=== PATIENT | female | born 1940 | race Caucasian/White ===

== ENCOUNTER 2018-03-23 05:45 | Inpatient (IN) | payer OTHER, MEDICARE ==
[~2018-03-23] VITALS: Ht 170.2 cm; Wt 90.0 kg
[2018-03-23 05:59] VITALS: BP 107/54; PULSE 89; RESP 16; TEMP 98.7; O2SAT 85
[2018-03-23 06:00] VITALS: RESP 16; O2SAT 93
[2018-03-23] MEDS ORDERED: TETANUS/DIPHTHERIA TOXOID ADULT 0.5 ML VIAL IM ONE (06:00)
[2018-03-23] MEDS ORDERED: SODIUM CHLORIDE 0.9% FLUSH 10 ML FLUSH IVF PRN (06:00)
[2018-03-23] MEDS: ceFAZolin 2 GM PREMIX 50 ML IV ONE ×2 (06:00→06:13)
--- NOTE | 2018-03-23 06:00 | PD ---
HPI Chief Complaint: Fall, ankle injury Time Seen by Provider: 05:54 Travel History International Travel<30 days: No Contact w/Intl Traveler<30days: No Traveled to known affect area: No History of Present Illness HPI 77-year-old female with history of A. fib, brought in by indolence from home for evaluation of right ankle pain and deformity after mechanical fall that occurred this morning. The patient reports that she lost her balance and fell to the ground. She states that she likely struck her posterior head, however denies loss of consciousness. She denies head neck or back pain. She has some mild pain in her right ankle with reported deformity by EMS. EMS also reports that the right foot and ankle are neurovascularly intact, and that there are no other injuries. Patient did not complain of any pain and therefore did not receive any pain medication prior to arrival. Here she states her pain is mild , located in her right ankle, and does not wish to have any pain medication at this time. She is not on any antiplatelets or anticoagulants. The patient is currently being treated for bronchitis by her primary care physician with amoxicillin and doxycycline. PFSH Past Medical History Arthritis: Yes Autoimmune Disease: No Blood Disorders: No Anxiety: Yes Depression: Yes Heart Rhythm Problems: Yes (AFIB WITH RVR) Cancer: Yes Cardiovascular Problems: Yes High Cholesterol: Yes Chemotherapy: No Endocrine: No GERD: Yes Genitourinary: No Immune Disorder: No Musculoskeletal: Yes Neurologic: Yes Respiratory: No Radiation Therapy: No Past Surgical History AICD: No Joint Replacement: No Pacemaker: No Thoracic Surgery: Yes (LEFT MASTECTOMY) Social History Alcohol Use: Yes (1 GLASS OF WINE PER DAY) Tobacco Use: No Substance Use: No Allergies-Medications (Allergen,Severity, Reaction): Coded Allergies: No Known Allergies (Verified Allergy, Severe, 09/19/05) Reported Meds & Prescriptions Reported Meds & Active Scripts Active Reported Doxycycline 40 Mg Cap 100 Mg PO QID Zofran (Ondansetron HCl) 4 Mg Tab 4 Mg PO Q6HR PRN Amoxicillin 500 Mg Cap 500 Mg PO TID Medrol Dosepak (Methylprednisolone) 4 Mg Dspk 4 Mg PO DIRECTED Per Pharmacist direction Sumatriptan (Sumatriptan Succinate) 50 Mg Tab 50 Mg PO ONCE PRN If a satisfactory response has not been obtained at 2 hours, a second dose may be administered Ativan (Lorazepam) 1 Mg Tab 1 Mg PO Q8H PRN Lisinopril 10 Mg Tab 10 Mg PO DAILY Ambien (Zolpidem Tartrate) 10 Mg Tab 10 Mg PO HS PRN Flecainide (Flecainide Acetate) 100 Mg Tab 100 Mg PO TID Review of Systems Except as stated in HPI: all other systems reviewed are Neg Physical Exam Narrative GENERAL: Well-developed, well-nourished, awake, alert, GCS 15, no apparent distress. SKIN: Focused skin assessment warm/dry. Small, approximately 1 cm horizontal laceration, superficial, to the right anterior/medial/distal leg with surrounding ecchymosis and underlying hematoma. HEAD: Atraumatic. Normocephalic. EYES: Pupils equal and round. No scleral icterus. No injection or drainage. ENT: No nasal bleeding or discharge. Mucous membranes pink and moist. NECK: Trachea midline. No JVD. No midline cervical spine step-off or tenderness. CARDIOVASCULAR: Regular rate and rhythm. 1+ bilateral dorsalis pedis pulses. Normal capillary refill in bilateral toes. RESPIRATORY: No accessory muscle use. Clear to auscultation. Breath sounds equal bilaterally. GASTROINTESTINAL: Abdomen soft, non-tender, nondistended. . MUSCULOSKELETAL: Skin exam as above. Obvious deformity and edema to the right ankle with mild tenderness.. The rest of her joints and extremities are without deformity, without tenderness, with normal range of motion. All compartments in the right lower extremity are supple. NEUROLOGICAL: Awake and alert. No obvious cranial nerve deficits. Motor grossly within normal limits. Normal speech. PSYCHIATRIC: Appropriate mood and affect; insight and judgment normal. Data Data Last Documented VS Vital Signs Date Time Temp Pulse Resp B/P (MAP) Pulse Ox O2 Delivery O2 Flow Rate FiO2 03/23/18 06:00 16 93 Nasal Cannula 5.00 03/23/18 06:00 89 03/23/18 05:59 98.7 107/54 (71) Orders Orders Complete Blood Count With Diff (03/23/18 05:54) Comprehensive Metabolic Panel (03/23/18 05:54) B-Type Natriuretic Peptide (03/23/18 05:54) Act Partial Throm Time (Ptt) (03/23/18 05:54) Prothrombin Time / Inr (Pt) (03/23/18 05:54) Iv Access Insert/Monitor (03/23/18 05:54) Ecg Monitoring (03/23/18 05:54) Oximetry (03/23/18 05:54) Oxygen Administration (03/23/18 05:54) Sodium Chloride 0.9% Flush (Ns Flush) (03/23/18 06:00) Chest, Single Ap (03/23/18 ) Ankle, Complete ([id number]) (03/23/18 ) Tibia/Fibula (Ap/Lat) (03/23/18 ) Tetanus/Diphtheria Tox Adult (Tetanus/Di (03/23/18 06:00) Cefazolin 2 Gm Premix (Ancef 2 Gm Premix (03/23/18 06:00) Ckmb (Isoenzyme) Profile (03/23/18 05:58) Troponin I (03/23/18 05:58) Albuterol-Ipratropium Neb (Duoneb Neb) (03/23/18 06:45) Support Splint (03/23/18 06:42) Ankle, Complete ([id number]) (03/23/18 ) Labs Laboratory Tests Test 03/23/18 06:00 White Blood Count 11.0 TH/MM3 Red Blood Count 4.13 MIL/MM3 Hemoglobin 12.4 GM/DL Hematocrit 37.6 % Mean Corpuscular Volume 91.0 FL Mean Corpuscular Hemoglobin 29.9 PG Mean Corpuscular Hemoglobin Concent 32.8 % Red Cell Distribution Width 13.3 % Platelet Count 203 TH/MM3 Mean Platelet Volume 8.8 FL Neutrophils (%) (Auto) 90.0 % Lymphocytes (%) (Auto) 3.8 % Monocytes (%) (Auto) 6.1 % Eosinophils (%) (Auto) 0.0 % Basophils (%) (Auto) 0.1 % Neutrophils # (Auto) 9.9 TH/MM3 Lymphocytes # (Auto) 0.4 TH/MM3 Monocytes # (Auto) 0.7 TH/MM3 Eosinophils # (Auto) 0.0 TH/MM3 Basophils # (Auto) 0.0 TH/MM3 CBC Comment AUTO DIFF Prothrombin Time 11.2 SEC Prothromb Time International Ratio 1.1 RATIO Activated Partial Thromboplast Time 21.5 SEC Blood Urea Nitrogen 29 MG/DL Creatinine 1.55 MG/DL Random Glucose 145 MG/DL Total Protein 7.5 GM/DL Albumin 3.0 GM/DL Calcium Level 8.9 MG/DL Alkaline Phosphatase 99 U/L Aspartate Amino Transf (AST/SGOT) 54 U/L Alanine Aminotransferase (ALT/SGPT) 39 U/L Total Bilirubin 0.5 MG/DL Sodium Level 140 MEQ/L Potassium Level 3.6 MEQ/L Chloride Level 101 MEQ/L Carbon Dioxide Level 26.7 MEQ/L Anion Gap 12 MEQ/L Estimat Glomerular Filtration Rate 33 ML/MIN B-Type Natriuretic Peptide 515 PG/ML MDM Medical Decision Making Medical Screen Exam Complete: Yes Emergency Medical Condition: Yes Differential Diagnosis Right ankle fracture/dislocation, open fraction, contusion, intracranial trauma less likely, pneumonia, bronchitis, pulmonary edema Narrative Course Right ankle x-ray shows bimalleolar fracture with lateral displacement of the ankle joint. There is a small wound over the distal/anterior/medial leg which is superficial. It is hard to tell if this is an open fracture not. The patient was given a dose of Ancef. Her tetanus was updated. Case discussed with orthopedist Dr. Willard. The patient is hypoxic on room air and has a deep sounding cough and I am afraid that she has pneumonia. Her O2 saturation is 86% on room air. She is not in any respiratory distress. I told him that I am hesitant to sedate her to reduce the fracture dislocation. I will apply a splint and try to manipulate the ankle joint into better anatomic alignment. The foot is neurovascularly intact. He would like the patient to remain n.p.o. for likely ORIF today. Chest x-ray shows no acute cardiopulmonary disease. CBC: WBC 11, 37.6, platelets 203, neutrophils 90%. CMP is remarkable for BUN 29, creatinine 1.55, GFR 33, random glucose 145. 7:05 AM: The patient was evaluated at the bedside by orthopedist Dr. Burger who will take the patient to the OR for ORIF. Diagnosis Primary Impression: Fracture dislocation of right ankle Qualified Codes: S82.891A - Other fracture of right lower leg, initial encounter for closed fracture Additional Impression: Fall Qualified Codes: W19.XXXA - Unspecified fall, initial encounter Admitting Information Admitting Physician Requests: Admit Oliver Fernando MD March 23, 2018 06:00
[2018-03-23 06:06] LABS: AUTOMATED NEUTROPHIL # 9.9 TH/MM3 (1.8-7.7); BASOPHIL % 0.1 % (0.0-2.0); HEMATOCRIT 37.6 % (35.0-46.0); HEMOGLOBIN 12.4 GM/DL (11.6-15.3); LYMPH % 3.8 % (9.0-44.0); LYMPHOCYTE # 0.4 TH/MM3 (1.0-4.8); MEAN CORPUSCULAR HEMOGLOBIN 29.9 PG (27.0-34.0); MEAN CORPUSCULAR HGB CONC 32.8 % (32.0-36.0); MEAN PLATELET VOLUME 8.8 FL (7.0-11.0); MONO % 6.1 % (0.0-8.0); MONOCYTE # 0.7 TH/MM3 (0-0.9); PLATELET COUNT 203 TH/MM3 (150-450); RED BLOOD COUNT 4.13 MIL/MM3 (4.00-5.30); RED CELL DISTRIBUTION WIDTH 13.3 % (11.6-17.2)
[2018-03-23] MEDS ORDERED: MEDR4PAK PO (06:09)
[2018-03-23] MEDS ORDERED: ZOFR4TAB PO (06:09)
[2018-03-23] MEDS ORDERED: LORA-474 PO (06:09)
[2018-03-23] MEDS ORDERED: AMBI10TA PO (06:09)
[2018-03-23] MEDS ORDERED: LISI10TA3 PO (06:09)
[2018-03-23] MEDS ORDERED: AMOX500C PO (06:09)
[2018-03-23] MEDS ORDERED: DOXY1CAP74 PO (06:09)
[2018-03-23] MEDS ORDERED: SUMA50TA2 PO (06:09)
[2018-03-23] MEDS ORDERED: FLEC100T PO (06:09)
[2018-03-23 06:15] LABS: INTERNATIONAL NORMALIZED RATIO 1.1 RATIO; PROTHROMBIN TIME - PATIENT 11.2 SEC (9.8-11.6)
[2018-03-23 06:32] LABS: ALKALINE PHOSPHATASE 99 U/L (45-117); TOTAL BILIRUBIN ADULT 0.5 MG/DL (0.2-1.0); TOTAL PROTEIN 7.5 GM/DL (6.4-8.2)
[2018-03-23 06:33] LABS: ALT (GPT) 39 U/L (10-53); AST (GOT) 54 U/L (15-37); BICARBONATE 26.7 MEQ/L (21.0-32.0); BLOOD UREA NITROGEN 29 MG/DL (7-18); CALCIUM 8.9 MG/DL (8.5-10.1); CHLORIDE 101 MEQ/L (98-107); CREATININE 1.55 MG/DL (0.50-1.00); GLOMERULAR FILTRATION RATE 33 ML/MIN (>89); GLUCOSE,RANDOM 145 MG/DL (74-106); SODIUM (NA) 140 MEQ/L (136-145)
[2018-03-23] MEDS ORDERED: RESP: ALBUTEROL 2.5 MG/IPRATROPIUM 0.5 MG NEB (SCH) INH ONE (06:45)
--- NOTE | 2018-03-23 06:48 | RADRPT ---
EXAM DATE: 03/23/2018 6:30 AM EDT AGE/SEX: 77 years / Female INDICATIONS: Pain in right ankle from fall in shower. CLINICAL DATA: This is the patient's initial encounter. Patient reports that signs and symptoms have been present for 1 day and indicates a pain score of 10/10. MEDICAL/SURGICAL HISTORY: None. None. COMPARISON: No prior exams available for comparison. FINDINGS: The ankle mortise is disrupted with widening of the medial tibiotalar joint and there is a complete f racture of distal fibula above the lateral malleolus which is also angulated. There are also fracture s of the talar dome and anterior displacement of the talus with respect to tibia. CONCLUSION: Disrupted ankle mortise and fractures of the distal fibula, talar dome and partial tibiotalar disloca tion. Electronically signed by: Deric Parra MD 03/23/2018 6:46 AM EDT
--- NOTE | 2018-03-23 06:50 | RADRPT ---
EXAM DATE: 03/23/2018 6:28 AM EDT AGE/SEX: 77 years / Female INDICATIONS: Pain in right ankle from fall, in shower. CLINICAL DATA: This is the patient's initial encounter. Patient reports that signs and symptoms have been present for 1 day and indicates a pain score of 10/10. MEDICAL/SURGICAL HISTORY: None. None. COMPARISON: No prior exams available for comparison. FINDINGS: The ankle mortise is completely disrupted with almost 2 cm widening of the medial tibiotalar joint. T here is a fibular fracture is present of the lateral malleolus slightly angulated and there appears t o be a fracture with avulsion of the medial talar dome as well. The fibular fracture is displaced by almost the width. There is also partial anterior dislocation of the talus with respect to tibia. CONCLUSION: Disrupted ankle mortise, fractures of the medial talar dome and displaced distal fibular fracture. Pa rtial anterior dislocation of tibiotalar joint. Electronically signed by: Deric Parra MD 03/23/2018 6:49 AM EDT
--- NOTE | 2018-03-23 06:51 | RADRPT ---
EXAM DATE: 03/23/2018 6:29 AM EDT AGE/SEX: 77 years / Female INDICATIONS: Short of breath. CLINICAL DATA: This is the patient's initial encounter. Patient reports that signs and symptoms have been present for 1 day and indicates a pain score of 0/10. MEDICAL/SURGICAL HISTORY: None. None. COMPARISON: [facility], ANKLE RIGHT COMPLETE ([id number]), 03/23/2018. . FINDINGS: The lungs are clear without infiltrate, nodule, or mass. There is no appreciable pleural effusion for technique. Heart and mediastinum are unremarkable. CONCLUSION: No acute cardiopulmonary disease. Electronically signed by: Deric Parra MD 03/23/2018 6:50 AM EDT
[2018-03-23 07:05] VITALS: BP 127/65; PULSE 83; RESP 16; O2SAT 96
[2018-03-23 07:23] LABS: BANDS 38 % (0-6); LYMPHOCYTES 2 % (9-44); MONOCYTES 3 % (0-8); NEUTROPHIL # MANUAL DIFF 10.5 TH/MM3 (1.8-7.7); POLYS (SEG NEUTROPHILS) 57 % (16-70)
[2018-03-23] MEDS ORDERED: ACETAMINOPHEN 1000 MG/100 ML 100 ML IV ONE (07:46)
[2018-03-23] MEDS ORDERED: PROPOFOL 200 MG/20 ML AMP ONE ×2 (07:46)
--- NOTE | 2018-03-23 07:46 | PD.ORT.PN ---
Subjective Subjective Remarks s/p fall at home right ankle pain reports SOB Objective Vitals Vital Signs Date Time Temp Pulse Resp B/P (MAP) Pulse Ox O2 Delivery O2 Flow Rate FiO2 03/23/18 07:05 83 16 127/65 (85) 96 Nasal Cannula 4.00 03/23/18 06:00 16 93 Nasal Cannula 5.00 03/23/18 06:00 89 16 85 Room Air 03/23/18 06:00 93 Nasal Cannula 5.00 03/23/18 05:59 98.7 89 16 107/54 (71) 85 Result Diagram: 03/23/18 0600 03/23/18 0600 Other Results Laboratory Tests Test 03/23/18 06:00 Prothromb Time International Ratio 1.1 RATIO Prothrombin Time 11.2 SEC (9.8-11.6) Imaging Last 24 hours Impressions Tibia/Fibula X-Ray 03/23/18 0000 Signed Impressions: CONCLUSION: Disrupted ankle mortise and fractures of the distal fibula, talar dome and part ial tibiotalar dislocation. Chest X-Ray 03/23/18 0000 Signed Impressions: CONCLUSION: No acute cardiopulmonary disease. Ankle X-Ray 03/23/18 0000 Signed Impressions: CONCLUSION: Disrupted ankle mortise, fractures of the medial talar dome and displaced dista l fibular fracture. Partial anterior dislocation of tibiotalar joint. Objective Remarks RLE: +short leg splint. intact. NVI Assessment & Plan Assessment and Plan 1) Right Bimalleolar Ankle Fx -npo -consents -surgery today with Bebeto Bach/First Rakesh RAINES March 23, 2018 07:46
[2018-03-23] MEDS ORDERED: HYDR-3580 PO (07:47)
[2018-03-23] MEDS ORDERED: WALKER/ADULT/FO1 MIS (07:47)
[2018-03-23] MEDS ORDERED: POVIDONE IODINE 5% (ANTISEPSIS KIT) 4 APPLICATIONS EACH NARE PRN (08:00)
[2018-03-23] MEDS ORDERED: METOPROLOL TARTRATE 25 MG TAB PO PRN (08:00)
[2018-03-23] MEDS ORDERED: LACTATED RINGER'S 1000 ML IV PRN (08:00)
[2018-03-23] MEDS ORDERED: CHLORHEXIDINE GLUCONATE 2 % 1 PACK (2 CLOTHS) TOPICAL PRN (08:00)
[2018-03-23] MEDS ORDERED: INSULIN HUMAN REGULAR 1,000 UNITS/10 ML VIAL SQ PRN (08:00)
[2018-03-23] MEDS ORDERED: SODIUM CHLORID 0.9% 500 ML IV PRN (08:00)
[2018-03-23] MEDS: VANCOMYCIN HCL 1000 MG VIAL ONE ×2 (08:24→08:39)
--- NOTE | 2018-03-23 08:38 | MB ---
cc: Tommy Burger MD DATE: 03/23/2018 REASON FOR CONSULTATION: Right ankle fracture. HISTORY OF PRESENT ILLNESS: Sosa is a 77-year-old female who had a fall at home. She describes a mechanical fall. She lost her balance and fell. She did hit the back of her head, but denies loss of consciousness. She denies dizziness, syncope or loss of consciousness. She had immediate right ankle pain. She was unable to stand or ambulate. She presented to the emergency room where x-rays revealed a mildly displaced right ankle fracture. The patient reportedly has a small abrasion over the medial ankle. It did not appear to be an open fracture. She does have a history of atrial fibrillation. She was recently diagnosed with bronchitis or possible pneumonia and is on amoxicillin and doxycycline. She has had some shortness of breath secondary to this. PAST MEDICAL HISTORY: Illnesses, atrial fibrillation with rapid ventricular response, history of cancer, high cholesterol. PAST SURGICAL HISTORY: Left mastectomy. ALLERGIES: NO KNOWN DRUG ALLERGIES. MEDICATIONS: Include: 1. Doxycycline. 2. Zofran. 3. Amoxicillin. 4. Medrol Dosepak. 5. Sumatriptan. 6. Ativan. 7. Lisinopril. 8. Ambien. 9. Flecainide. SOCIAL HISTORY: The patient denies tobacco or drug use. She drinks 1 glass of wine a day. FAMILY HISTORY: Noncontributory. She denies any familial medical problems. REVIEW OF SYSTEMS: The patient denies headache, visual changes, neck pain, chest pain, shortness of breath, abdominal pain, nausea, vomiting, recent weight loss, fever or chills or numbness to his extremities. She has had a productive cough. She has had mild shortness of breath. She has chronic peripheral neuropathy. She complains of right ankle pain. LABORATORY DATA: The patient has a white blood cell count of 11.0, hematocrit of 37.6, platelet count of 203. INR 1.1. BUN is 29, creatinine is 1.55, potassium is 2.6. IMAGING: X-rays of right ankle reviewed. X-rays reveal a moderately displaced right ankle bimalleolar fracture. PHYSICAL EXAMINATION: GENERAL: The patient is a 77-year-old female. She is awake and alert. She is in no acute distress. She appears well-developed and well-nourished. Her is at bedside. VITAL SIGNS: Temperature 98.7, pulse 83, respirations 16, blood pressure 127/65, O2 saturation is 96% on 4 liters nasal cannula. HEAD: The patient is normocephalic. EYES: Pupils are equal. NECK: Soft, nontender. The trachea is midline. ABDOMEN: Soft, nontender, nondistended. EXTREMITIES: Examination of bilateral upper extremities reveals no obvious pain or deformity with shoulder, elbow and wrist motion. She has intact sensation in all fingers. She has good cap refill in all fingers. Skin is intact. Radial pulses are palpable. Examination of left leg reveals no pain with hip, knee or ankle motion. Skin is intact. Dorsalis pedis pulses palpable. Sensation is intact. Examination of right leg reveals no pain with hip or knee motion. She is tender to palpation over her ankle. She has mild swelling present. She has a small abrasion over the medial ankle. She has good capillary refill in her toes. She has mildly diminished sensation in both feet secondary to peripheral neuropathy. IMPRESSION: 1. Atrial fibrillation. 2. Possible osteoporosis. 3. Displaced right ankle fracture. 4. Possible pneumonia or bronchitis. PLAN: Treatment options were discussed with the patient and her . At this point, I would recommend open reduction internal fixation of right ankle. Risks of surgery include bleeding, infection, injury to arteries, nerves or blood vessels, nonunion, malunion, wound complications, painful hardware, ankle stiffness, ankle arthritis as well as medical complications including blood clot, stroke, heart attack and . All questions were answered. I will plan on surgery today. Given the patient's pneumonia, I will discussed with anesthesia possible spinal or regional anesthesia to avoid general anesthetic. Postoperatively, I will place the patient on calcium and vitamin D for possible osteoporosis. All questions were answered. A mid-level provider in my office, nurse practitioner or PA, may see this patient on a follow-up basis and continue to implement the objective of this plan including: Starting or adjusting medications, injections of muscle, tendon, bursa or joints, cast application, orthotic or brace application, physical therapy, further radiographic studies including x-ray, MRI, CT, ultrasounds or bone scan, vascular studies, neurologic studies, or other specialist consultations, and proceeding with surgical management as appropriate. Tommy MD BIJAN Schwarz , 08:14 AM , 08:36 AM
[2018-03-23] MEDS ORDERED: MORPHINE SULFATE 4 MG/ML INJ IV PUSH PRN (09:15)
[2018-03-23] MEDS ORDERED: Post-op Orders (for Pharmacy) XX ONE (09:15)
--- NOTE | 2018-03-23 09:17 | PD.OP ---
cc: Tommy Elliott MD Operative Report Date of Surgery: March 23, 2018 Preoperative Diagnosis: Displaced right ankle bimalleolar fracture Postoperative Diagnosis: Procedure: Open reduction internal fixation right ankle Anesthesia: Spinal Surgeon: Tommy Elliott Grinder Set Up Operator Surface(s): CEM Doan PA-C The surgical procedure was assisted by my physician physical therapist assistant. My P.A. presence was necessary throughout this case for the manipulation and positioning of the surgical extremity. My P.A. was assisting me throughout the duration of this procedure. The skill set of a physician physical therapist assistant was medically necessary to complete this procedure. During the surgical case the surgical pathologist was working at the back table and the physician physical therapist assistant was directly assisting me. Operation and Findings: Implants used : ITS Plan of activity: Nonweightbearing Details of procedure: Patient was seen and evaluated preoperatively and found to have a displaced right ankle fracture. Informed consent was obtained after a detailed discussion of risk and benefits of surgery. The operative site was marked. Patient was brought to the OR, placed on the OR table, and given IV sedation and general endotracheal anesthesia. IV antibiotics were given preoperatively. A timeout procedure was performed. The operative leg was prepped with alcohol followed by Hibiclens and draped in the usual sterile fashion. Attention was turned towards the distal fibula. A four-inch incision was made over the distal fibula. The subcutaneous tissue was dissected with Bovie. The fracture site was visualized. The fracture site was cleaned with curets. The fracture was now reduced. The fracture keyed into anatomic alignment. K-wires were used to h old provisional fixation. A lag screw was placed to compress fracture. A plate was selected and contoured to fit the distal fibula. The plate was provisionally held to bone with K-wires. 3.5 cortical screws were used to compress the plate to bone. Multiple screws were placed above and below the fracture. Next attention was turned towards the medial malleolus. The medial malleolus supposed through a 3 cm incision. Saphenous vein was retracted. Fracture was visualized. Fracture was cleaned with curettes. Fracture was now reduced and keyed into anatomic alignment. K wires were used to hold provisional fixation. A guidepin for the 4.0 cannulated screws was placed in a retrograde fashion across the fracture. Fluoroscopy was used to confirm guidepin placement. Cannulated drill was placed over the guidepin. Appropriate length screw was now placed. Good compression was applied. Only one screw was placed secondary to the small fragment size. Fluoroscopy confirmed well aligned fracture with well-placed hardware. Next, attention was turned to the syndesmosis. The syndesmosis was stressed. There was no widening of the syndesmosis with external rotation of the ankle. Incisions were thoroughly irrigated. The subcutaneous tissue was closed with 3- 0 Vicryl and the skin was closed with 3-0 nylon. Sterile dressings were applied. A well molded well-padded splint was applied. The patient was transferred to Recovery in stable condition. Needle and sponge counts were correct. Tommy Elliott MD March 23, 2018 09:17
[2018-03-23] MEDS ORDERED: ONDANSETRON ODT 4 MG TAB PO PRN (09:45)
[2018-03-23] MEDS ORDERED: DO NOT ADM ANY ANTICOAGULANT DRUGS PRN (09:53)
--- NOTE | 2018-03-23 09:54 | HHI.FF ---
Face to Face Verification Diagnosis: (1) Fracture dislocation of right ankle Physical Therapy Gait training, Safety evaluation Right LE Weight Bearing: Non WB Nursing Dressing Changes: Do not change dressing I have seen patient Sosa Woods on 03/23/18. My clinical findings support the need for the requested home health care services because: Ltd mobility - disease progression I certify that my clinical findings support that this patient is homebound because: Post-op weakness Bebeto Gibbs/Blackjack Supervisor OLU March 23, 2018 09:54
[2018-03-23] MEDS ORDERED: PHENYLEPH/NS 1000 MCG/10 ML SYR IV ONE (12:00)
[2018-03-23] MEDS ORDERED: KETOROLAC TROMETHAMINE 30 MG/ML (IVP) VIAL IV PUSH ONE (12:00)
--- NOTE | 2018-03-23 12:50 | RADRPT ---
EXAM DATE: 03/23/2018 12:17 PM EDT AGE/SEX: 77 years / Female INDICATIONS: ORIF right ankle. CLINICAL DATA: This is the patient's subsequent encounter. Patient reports that signs and symptoms h ave been present for 1 day and indicates a pain score of Nonresponsive. MEDICAL/SURGICAL HISTORY: . Unobtainable. . Unobtainable. COMPARISON: [facility] [place], ANKLE RIGHT COMPLETE ([id number]), 03/23/2018. . FINDINGS: AP and lateral fluoroscopic images of the right ankle demonstrate interval plate and screw fixation o f the distal fibula and screw fixation of the medial malleolus with interval reduction of the ankle m ortise. Hardware appears well positioned and intact. There is near-anatomic alignment. CONCLUSION: 1. Status post right ankle ORIF, as above. Electronically signed by: Marcos Arriaga MD 03/23/2018 12:48 PM EDT
[2018-03-23] MEDS ORDERED: TYLE325T PO (12:55)
[2018-03-23 13:15] VITALS: BP 115/76; PULSE 72; RESP 17; TEMP 97.8; O2SAT 95
--- NOTE | 2018-03-23 13:26 | HHI.HP ---
[facility] Service [facility] Primary Care Physician Tisha Staton MD Admission Diagnosis ankle fracture, hypoxia, bronchitis Diagnoses: Chief Complaint: I fell. Travel History International Travel<30 Days: No Contact w/Intl Traveler <30 Da: No Traveled to Known Affected Are: No History of Present Illness 77-year-old white female with a history of paroxysmal atrial fibrillation sustained a fall after she lost her balance and sustained a injury over the right ankle. She states that she hit her head however did not lose consciousness. She also recently been diagnosed with bronchitis is currently taking amoxicillin doxycycline from her primary care physician. Currently she denies any heart palpitations nor any chest pains. She is currently not on any anticoagulation For her history of atrial fibrillation. Review of Systems Constitutional: DENIES: Fatigue, Fever, Chills, Change in appetite Endocrine: DENIES: Heat/cold intolerance Eyes: DENIES: Blurred vision, Eye pain, Vision loss Ears, nose, mouth, throat: DENIES: Hearing loss, Nasal discharge, Throat pain, Ear Pain, Sinus Pain Respiratory: COMPLAINS OF: Cough ( recent diagnosis of bronchitis dry cough), DENIES: Shortness of breath Cardiovascular: DENIES: Chest pain, Palpitations, Dyspnea on Exertion, Lower Extremity Edema Gastrointestinal: DENIES: Abdominal pain, Black stools, Bloody stools, Constipation, Diarrhea, Nausea, Vomiting Genitourinary: DENIES: Dysuria Musculoskeletal: COMPLAINS OF: Joint pain (Right ankle pain after fall), DENIES : Muscle aches, Stiffness Integumentary: DENIES: Rash Hematologic/lymphatic: DENIES: Bruising, Lymphadenopathy Immunologic/allergic: DENIES: Eczema Neurologic: DENIES: Headache, Localized weakness, Paresthesias Psychiatric: DENIES: Anxiety, Depression, Suicidal Ideation Past Family Social History Past Medical History Paraxysmal atrial fibrillation Hyperlipidemia Hypertension GERD Recent bronchitis Left breast cancer Past Surgical History Left mastectomy Right wrist surgery Right rotator cuff surgery Reported Medications Acetaminophen 6 mg p.o. every 4 as needed for pain Amoxicillin 500 minutes p.o. 3 times daily Doxycycline 100 P.o. 4 times daily Flecainide 100 mg p.o. 3 times daily Alexander one every 4 hours as needed for pain Lisinopril 10 mg p.o. daily Ativan 1 mg every 8 hours as needed for anxiety Medrol Dosepak 4 mg as directed Zofran 4 mg every 4-6 as needed for nausea Sumatriptan 50 mg p.o. as needed for migraine headaches Ambien 10 mg p.o. nightly as needed for insomnia Allergies: Coded Allergies: No Known Allergies (Verified Allergy, Severe, 09/19/05) Family History Both mom and dad had heart disease Social History Does not smoke cigarettes drinks 1-1/2 glasses of wine nightly Physical Exam Vital Signs Vital Signs Date Time Temp Pulse Resp B/P (MAP) Pulse Ox O2 Delivery O2 Flow Rate FiO2 03/23/18 13:15 97.8 72 17 115/76 (89) 95 03/23/18 12:00 72 16 109/59 (76) 95 Nasal Cannula 2 03/23/18 11:30 74 16 109/55 (73) 95 Nasal Cannula 2 03/23/18 11:00 72 16 119/57 (77) 95 Nasal Cannula 2 03/23/18 10:45 70 16 112/58 (76) 96 Nasal Cannula 2 03/23/18 10:30 70 16 113/56 (75) 95 Nasal Cannula 2 03/23/18 10:15 74 16 126/56 (79) 96 Nasal Cannula 2 03/23/18 10:00 72 16 101/55 (70) 96 Nasal Cannula 2 03/23/18 09:50 97.5 72 16 103/55 (71) 98 Nasal Cannula 2 03/23/18 07:05 83 16 127/65 (85) 96 Nasal Cannula 4.00 03/23/18 06:00 16 93 Nasal Cannula 5.00 03/23/18 06:00 89 16 85 Room Air 03/23/18 06:00 93 Nasal Cannula 5.00 03/23/18 05:59 98.7 89 16 107/54 (71) 85 Physical Exam GENERAL: This is a well-nourished, well-developed patient, in no apparent distress. SKIN: No rashes, ecchymoses or lesions. Cool and dry. Right lower extremity in a cast bandage clean dry intact HEAD: Atraumatic. Normocephalic. No temporal or scalp tenderness. EYES: Pupils equal round and reactive. Extraocular motions intact. No scleral icterus. No injection or drainage. ENT: Nose without bleeding, purulent drainage or septal hematoma. NECK: Trachea midline. No JVD or lymphadenopathy. Supple, nontender, no meningeal signs. CARDIOVASCULAR: Regular rate and rhythm RESPIRATORY: Clear to auscultation. Breath sounds equal bilaterally. No wheezes , rales, or rhonchi. GASTROINTESTINAL: Abdomen soft, non-tender, nondistended. No hepato-splenomegaly , or palpable masses. No guarding. MUSCULOSKELETAL: Right lower extremity bandage clean dry intact NEUROLOGICAL: Awake and alert. Cranial nerves II through XII intact. Normal speech. Laboratory Laboratory Tests Test 03/23/18 06:00 White Blood Count 11.0 Red Blood Count 4.13 Hemoglobin 12.4 Hematocrit 37.6 Mean Corpuscular Volume 91.0 Mean Corpuscular Hemoglobin 29.9 Mean Corpuscular Hemoglobin Concent 32.8 Red Cell Distribution Width 13.3 Platelet Count 203 Mean Platelet Volume 8.8 Neutrophils (%) (Auto) 90.0 Lymphocytes (%) (Auto) 3.8 Monocytes (%) (Auto) 6.1 Eosinophils (%) (Auto) 0.0 Basophils (%) (Auto) 0.1 Neutrophils # (Auto) 9.9 Lymphocytes # (Auto) 0.4 Monocytes # (Auto) 0.7 Eosinophils # (Auto) 0.0 Basophils # (Auto) 0.0 CBC Comment AUTO DIFF Differential Total Cells Counted 100 Neutrophils % (Manual) 57 Band Neutrophils % 38 Lymphocytes % 2 Monocytes % 3 Neutrophils # (Manual) 10.5 Differential Comment FINAL DIFF MANUAL Platelet Estimate NORMAL Platelet Morphology Comment ENLARGED Red Cell Morphology Comment NORMAL Prothrombin Time 11.2 Prothromb Time International Ratio 1.1 Activated Partial Thromboplast Time 21.5 Blood Urea Nitrogen 29 Creatinine 1.55 Random Glucose 145 Total Protein 7.5 Albumin 3.0 Calcium Level 8.9 Alkaline Phosphatase 99 Aspartate Amino Transf (AST/SGOT) 54 Alanine Aminotransferase (ALT/SGPT) 39 Total Bilirubin 0.5 Sodium Level 140 Potassium Level 3.6 Chloride Level 101 Carbon Dioxide Level 26.7 Anion Gap 12 Estimat Glomerular Filtration Rate 33 B-Type Natriuretic Peptide 515 Result Diagram: 03/23/18 0600 03/23/18 0600 Imaging Last Impressions Tibia/Fibula X-Ray 03/23/18 0000 Signed Impressions: CONCLUSION: Disrupted ankle mortise and fractures of the distal fibula, talar dome and part ial tibiotalar dislocation. Chest X-Ray 03/23/18 Signed Impressions: CONCLUSION: No acute cardiopulmonary disease. Ankle X-Ray 03/23/18 Signed Impressions: CONCLUSION: 1. Status post right ankle ORIF, as above. Caprini VTE Risk Assessment Caprini VTE Risk Assessment: Mod/High Risk (score >= 2) Caprini Risk Assessment Model Point Value = 1 Point Value = 2 Point Value = 3 Point Value = 5 Age 41-60 Minor surgery BMI > 25 kg/m2 Swollen legs Varicose veins or History of unexplained or recurrent spontaneous Oral contraceptives or hormone replacement Sepsis (< 1 month) Serious lung disease, including pneumonia (< 1 month) Abnormal pulmonary function Acute myocardial infarction Congestive heart failure (< 1 month) History of inflammatory bowel disease Medical patient at bed rest Age 61-74 Arthroscopic surgery Major open surgery (> 45 min) Laparoscopic surgery (> 45 min) Malignancy Confined to bed (> 72 hours) Immobilizing plaster cast Central venous access Age >= 75 History of VTE Family history of VTE Factor V Leiden Prothrombin [id number] Lupus anticoagulant Anticardiolipin antibodies Elevated serum homocysteine Heparin-induced thrombocytopenia Other congenital or acquired thrombophilia Stroke (< 1 month) Elective arthroplasty Hip, pelvis, or leg fracture Acute spinal cord injury (< 1 month) Prophylaxis Regimen Total Risk Factor Score Risk Level Prophylaxis Regimen 0-1 Low Early ambulation 2 Moderate Order ONE of the following: *Sequential Compression Device (SCD) *Heparin 5000 units SQ BID 3-4 Higher Order ONE of the following medications: *Heparin 5000 units SQ TID *Enoxaparin/Lovenox 40 mg SQ daily (WT < 150 kg, CrCl > 30 mL/min) *Enoxaparin/Lovenox 30 mg SQ daily (WT < 150 kg, CrCl > 10-29 mL/min) *Enoxaparin/Lovenox 30 mg SQ BID (WT < 150 kg, CrCl > 30 mL/min) AND/OR *Sequential Compression Device (SCD) 5 or more Highest Order ONE of the following medications: *Heparin 5000 units SQ TID (Preferred with Epidurals) *Enoxaparin/Lovenox 40 mg SQ daily (WT < 150 kg, CrCl > 30 mL/min) *Enoxaparin/Lovenox 30 mg SQ daily (WT < 150 kg, CrCl > 10-29 mL/min) *Enoxaparin/Lovenox 30 mg SQ BID (WT < 150 kg, CrCl > 30 mL/min) AND *Sequential Compression Device (SCD) Assessment and Plan Assessment and Plan 1. Status post fall with right displaced ankle fracture status post ORIF with Dr. Burger today - continue postoperative care, pain control, physical therapy 2. Atrial fibrillation paroxysmal -patient is not on chronic anticoagulation at home. Currently normal sinus rhythm will continue with flecainide. 3. Hypertension history continue with lisinopril Vasotec IV as needed for uncontrolled blood pressure. 4. Acute bronchitis recently diagnosed continue with home antibiotics doxycycline and steroid taper 5. Elevated Troponin I - asymptomatic - lilkely due to the trauma of fall and CKD stage 3, repeat level and trend 6. CKD stage 3 - monitor and avoid nephrotoxins. 5. DVT prophylaxis SCDs Patient will need home health care upon discharge. Physician Certification 2 Midnight Certification Type: Admission for Inpatient Services Order for Inpatient Services The services are ordered in accordance with Medicare regulations or non- Medicare payer requirements, as applicable. In the case of services not specified as inpatient-only, they are appropriately provided as inpatient services in accordance with the 2-midnight benchmark. Estimated LOS (days): 2 days is the estimated time the patient will need to remain in the hospital, assuming treatment plan goals are met and no additional complications. Post-Hospital Plan: Home Health Eliza Morrow MD March 23, 2018 13:26
[2018-03-23 13:27] LABS: TROPONIN I 0.71 NG/ML (0.02-0.05)
[2018-03-23] MEDS ORDERED: LORazepam 1 MG TAB PO PRN (13:30)
[2018-03-23] MEDS ORDERED: ceFAZolin 2 GM PREMIX 50 ML IV SCH (14:00)
--- NOTE | 2018-03-23 14:00 | EKG ---
Date Performed: 03/23/2018 Time Performed: 05:57:03 PTAGE: 77 years EKG: Sinus rhythm MODERATE INTRAVENTRICULAR CONDUCTION DELAY NONSPECIFIC T-WAVE ABNORMALITY BORDERLINE ECG NO PREVIOUS TRACING DOCTOR: Carlos Delcid Interpretating Date/Time 03/23/2018 13:58:06
[2018-03-23 16:00] VITALS: BP 124/64; PULSE 78; RESP 16; TEMP 97.3; O2SAT 96
[2018-03-23] MEDS: FLECAINIDE ACETATE 100 MG TAB PO SCH (17:47)
[2018-03-23] MEDS: AMOXICILLIN (TRIHYDRATE) 500 MG CAP PO SCH (17:47)
[2018-03-23] MEDS: ACETAMINOPHEN/HYDROcodone 325 MG/7.5 MG TAB PO PRN ×2 (17:53→20:45)
[2018-03-23 20:00] VITALS: BP 104/52; PULSE 83; RESP 18; TEMP 98.9; O2SAT 93
[2018-03-23] MEDS: DOXYCYCLINE HYCLATE 100 MG CAP PO SCH (20:44)
[2018-03-23] MEDS: ZOLPIDEM TARTRATE 10 MG TAB PO PRN (22:58)
[2018-03-24 00:01] VITALS: BP 105/56; PULSE 78; RESP 17; TEMP 98.1; O2SAT 94
[2018-03-24 04:00] VITALS: BP 113/61; PULSE 80; RESP 18; TEMP 98.8; O2SAT 94
[2018-03-24] MEDS: ACETAMINOPHEN/HYDROcodone 325 MG/7.5 MG TAB PO PRN ×3 (06:01→17:33)
[2018-03-24 06:34] LABS: BICARBONATE 28.3 MEQ/L (21.0-32.0); CALCIUM 8.5 MG/DL (8.5-10.1); CREATININE 1.22 MG/DL (0.50-1.00)
--- NOTE | 2018-03-24 06:38 | PD.ORT.PN ---
Subjective Subjective Remarks POD 1 s/p ORIF right bimalleolar ankle fx doing well. reports pain in right ankle. Objective Vitals Vital Signs Date Time Temp Pulse Resp B/P (MAP) Pulse Ox O2 Delivery O2 Flow Rate FiO2 03/24/18 04:00 98.8 80 18 113/61 (78) 94 03/24/18 00:01 98.1 78 17 105/56 (72) 94 03/23/18 20:00 98.9 83 18 104/52 (69) 93 03/23/18 16:00 97.3 78 16 124/64 (84) 96 03/23/18 13:15 97.8 72 17 115/76 (89) 95 03/23/18 12:00 72 16 109/59 (76) 95 Nasal Cannula 2 03/23/18 11:30 74 16 109/55 (73) 95 Nasal Cannula 2 03/23/18 11:00 72 16 119/57 (77) 95 Nasal Cannula 2 03/23/18 10:45 70 16 112/58 (76) 96 Nasal Cannula 2 03/23/18 10:30 70 16 113/56 (75) 95 Nasal Cannula 2 03/23/18 10:15 74 16 126/56 (79) 96 Nasal Cannula 2 03/23/18 10:00 72 16 101/55 (70) 96 Nasal Cannula 2 03/23/18 09:50 97.5 72 16 103/55 (71) 98 Nasal Cannula 2 03/23/18 07:05 83 16 127/65 (85) 96 Nasal Cannula 4.00 I/O 03/23/18 03/23/18 03/23/18 03/24/18 03/24/18 03/24/18 07:00 15:00 23:00 07:00 15:00 23:00 Intake Total 650 ml 850 ml 420 ml Output Total 25 ml Balance 625 ml 850 ml 420 ml Intake Oral 800 ml 420 ml IV Total 100 ml 50 ml Other 550 ml Output Estimated Blood Loss 25 ml # Voids 2 2 # Bowel Movements 0 Result Diagram: 03/23/18 0600 03/24/18 0447 Imaging Last 24 hours Impressions Tibia/Fibula X-Ray 03/23/18 0000 Signed Impressions: CONCLUSION: Disrupted ankle mortise and fractures of the distal fibula, talar dome and part ial tibiotalar dislocation. Chest X-Ray 03/23/18 0000 Signed Impressions: CONCLUSION: No acute cardiopulmonary disease. Ankle X-Ray 03/23/18 0000 Signed Impressions: CONCLUSION: Disrupted ankle mortise, fractures of the medial talar dome and displaced dista l fibular fracture. Partial anterior dislocation of tibiotalar joint. Objective Remarks RLE: +short leg splint. intact. NVI Assessment & Plan Assessment and Plan 1) Right Bimalleolar Ankle Fx s/p ORIF - POD 1 -NWB -maintain splint at all times -elevate -CM for DC planning home vs SNF -f/u with Tao or PA in 2 Bebeto Childress PA/Sales [employer] Representative PA March 24, 2018 06:38
[2018-03-24 08:00] VITALS: BP 132/63; PULSE 74; RESP 18; TEMP 98.2; O2SAT 93
[2018-03-24] MEDS: DOXYCYCLINE HYCLATE 100 MG CAP PO SCH ×2 (09:33→21:24)
[2018-03-24] MEDS: methylPREDNISolone 4 MG TAB PO SCH (09:33)
[2018-03-24] MEDS: AMOXICILLIN (TRIHYDRATE) 500 MG CAP PO SCH ×3 (09:33→17:33)
[2018-03-24] MEDS: FLECAINIDE ACETATE 100 MG TAB PO SCH ×2 (09:33→14:37)
[2018-03-24] MEDS: LISINOPRIL 10 MG TAB PO SCH (09:33)
--- NOTE | 2018-03-24 10:28 | HHI.PR ---
Subjective Remarks Follow-up visit history of paroxysmal A. fib, status post fall with right ankle fracture, status post right ankle ORIF by Dr. Burger. Patient seen and examined today sitting in bed. Patient states transfer with assist. Pain is manageable. She is able to manage transferring from bed to commode with use of walker. NWB. Says she does not have a commode at home. Otherwise she is feeling better. Objective Vitals Vital Signs Date Time Temp Pulse Resp B/P (MAP) Pulse Ox O2 Delivery O2 Flow Rate FiO2 03/24/18 08:00 98.2 74 18 132/63 (86) 93 03/24/18 04:00 98.8 80 18 113/61 (78) 94 03/24/18 00:01 98.1 78 17 105/56 (72) 94 03/23/18 20:00 98.9 83 18 104/52 (69) 93 03/23/18 16:00 97.3 78 16 124/64 (84) 96 03/23/18 13:15 97.8 72 17 115/76 (89) 95 03/23/18 12:00 72 16 109/59 (76) 95 Nasal Cannula 2 03/23/18 11:30 74 16 109/55 (73) 95 Nasal Cannula 2 03/23/18 11:00 72 16 119/57 (77) 95 Nasal Cannula 2 03/23/18 10:45 70 16 112/58 (76) 96 Nasal Cannula 2 03/23/18 10:30 70 16 113/56 (75) 95 Nasal Cannula 2 I/O 03/23/18 03/23/18 03/23/18 03/24/18 03/24/18 03/24/18 07:00 15:00 23:00 07:00 15:00 23:00 Intake Total 650 ml 850 ml 420 ml Output Total 25 ml 200 ml Balance 625 ml 850 ml 420 ml -200 ml Intake Oral 800 ml 420 ml IV Total 100 ml 50 ml Other 550 ml Output Urine Total 200 ml Estimated Blood Loss 25 ml # Voids 2 2 # Bowel Movements 0 Result Diagram: 03/23/18 0600 03/24/18 0447 Imaging Last Impressions Tibia/Fibula X-Ray 03/23/18 0000 Signed Impressions: CONCLUSION: Disrupted ankle mortise and fractures of the distal fibula, talar dome and part ial tibiotalar dislocation. Chest X-Ray 03/23/18 0000 Signed Impressions: CONCLUSION: No acute cardiopulmonary disease. Ankle X-Ray 03/23/18 Signed Impressions: CONCLUSION: 1. Status post right ankle ORIF, as above. Objective Remarks GENERAL: This is a well-nourished, well-developed patient, in no apparent distress. SKIN: Warm and dry. HEENT: Normocephalic. Pupils equal round and reactive. Nose without bleeding. Airway patent. NECK: Trachea midline. CARDIOVASCULAR: Regular rate and rhythm without murmurs, gallops, or rubs. RESPIRATORY: Clear to auscultation. Breath sounds equal bilaterally. No wheezes , rales, or rhonchi. GASTROINTESTINAL: Abdomen soft, non-tender, nondistended. Bowel Sounds normoactive x4. MUSCULOSKELETAL: Extremities without clubbing, cyanosis. Right lower extremity with Pelon bandage wrap, trace edema. Bilat Upper ext weakness 3/5 noted. NEUROLOGICAL: Awake and alert. Oriented to place, person. No focal neuro deficit. Moves all extremities. Normal speech. A/P Assessment and Plan 77-year-old white female with a history of paroxysmal atrial fibrillation sustained a fall after she lost her balance and sustained a injury over the right ankle. Status post fall with right displaced ankle fracture Status post ORIF by Dr. Burger -Physical therapy eval and treat -Pain medication with bowel regimen Atrial fibrillation, paroxysmal -Patient not on chronic anticoagulation at home -Continue with flecainide Hypertension history -Continue with Vasotec IV as needed for uncontrolled BP -Continue lisinopril 10 mg daily Acute bronchitis -Diagnosed prior to admission -Continue with p.o. antibiotics until completed, doxycycline, amoxicillin, steroid taper. Elevated troponin -This could be likely due to trauma and CKD stage III, trending down CKD stage III, chronic -Avoid nephrotoxins DVT prop SCDs Discharge patient to home with home care Condition on discharge: Improved Cardiac diet as tolerated Ad Lina activity Rx written: As ordered Follow-up with primary care physician Discharge Planning Plan to DC home with [facility], cleared by orthopedic. Adamant to go home with HHC versus SNF. Discus extensively with patient benefits of SNF with her current condition. States will help her at home and HHC has been set up for her. Discussed with Dawit Stone March 24, 2018 10:27 am
--- NOTE | 2018-03-24 10:35 | HHI.DCPOC ---
Discharge Care Plan Diagnosis: (1) Fracture dislocation of right ankle (2) Fall Your Health Problems Are: Difficulty with ADL Inflammation Leg Swelling Goals to Promote Your Health * To prevent worsening of your condition and complications * To maintain your health at the optimal level Directions to Meet Your Goals Take your medications as prescribed Follow your dietary instruction Follow activity as directed Keep your appointments as scheduled Take your immunizations and boosters as scheduled If your symptoms worsen call your PCP, if no PCP go to Urgent Care Center or Emergency Room Smoking is Dangerous to Your Health. Avoid second hand smoke Call the 24-hour hour crisis hotline for domestic abuse at Dawit Lucio March 24, 2018 10:35
[2018-03-24] MEDS ORDERED: COMMODE 3-IN-11 MIS (10:36)
--- NOTE | 2018-03-24 10:40 | HHI.DS ---
Discharge Summary Admission Date March 23, 2018 at 09:15 Discharge Date: Mar 25, 2018 Admitting Diagnosis ankle fracture, hypoxia, bronchitis (1) Fracture dislocation of right ankle ICD Code: S82.891A - Other fracture of right lower leg, initial encounter for closed fracture Status: Acute (2) CKD (chronic kidney disease), stage III ICD Code: N18.3 - Chronic kidney disease, stage 3 (moderate) Diagnosis: Secondary Status: Chronic Procedures status post right ankle ORIF by Dr. Burger on 03/23 Brief History - From Admission 77-year-old white female with a history of paroxysmal atrial fibrillation sustained a fall after she lost her balance and sustained a injury over the right ankle. She states that she hit her head however did not lose consciousness. She also recently been diagnosed with bronchitis is currently taking amoxicillin doxycycline from her primary care physician. Currently she denies any heart palpitations nor any chest pains. She is currently not on any anticoagulation For her history of atrial fibrillation. CBC/BMP: 03/23/18 0600 03/24/18 0447 Significant Findings Laboratory Tests Test 03/23/18 06:00 03/23/18 14:00 03/24/18 04:47 Neutrophils (%) (Auto) 90.0 % (16.0-70.0) Lymphocytes (%) (Auto) 3.8 % (9.0-44.0) Neutrophils # (Auto) 9.9 TH/MM3 (1.8-7.7) Lymphocytes # (Auto) 0.4 TH/MM3 (1.0-4.8) Band Neutrophils % 38 % (0-6) Lymphocytes % 2 % (9-44) Neutrophils # (Manual) 10.5 TH/MM3 (1.8-7.7) Platelet Morphology Comment ENLARGED (NORMAL) Activated Partial Thromboplast Time 21.5 SEC (24.3-30.1) Blood Urea Nitrogen 29 MG/DL (7-18) 38 MG/DL (7-18) Creatinine 1.55 MG/DL (0.50-1.00) 1.22 MG/DL (0.50-1.00) Random Glucose 145 MG/DL (74-106) Albumin 3.0 GM/DL (3.4-5.0) Aspartate Amino Transf (AST/SGOT) 54 U/L (15-37) Estimat Glomerular Filtration Rate 33 ML/MIN (>89) 43 ML/MIN (>89) Troponin I 0.71 NG/ML (0.02-0.05) 0.34 NG/ML (0.02-0.05) B-Type Natriuretic Peptide 515 PG/ML (0-100) Potassium Level 3.1 MEQ/L (3.5-5.1) Imaging Last Impressions Tibia/Fibula X-Ray 03/23/18 Signed Impressions: CONCLUSION: Disrupted ankle mortise and fractures of the distal fibula, talar dome and part ial tibiotalar dislocation. Chest X-Ray 03/23/18 Signed Impressions: CONCLUSION: No acute cardiopulmonary disease. Ankle X-Ray 03/23/18 Signed Impressions: CONCLUSION: 1. Status post right ankle ORIF, as above. PE at Discharge GENERAL: This is a well-nourished, well-developed patient, in no apparent distress. SKIN: Warm and dry. HEENT: Normocephalic. Pupils equal round and reactive. Nose without bleeding. Airway patent. NECK: Trachea midline. CARDIOVASCULAR: Regular rate and rhythm without murmurs, gallops, or rubs. RESPIRATORY: Clear to auscultation. Breath sounds equal bilaterally. No wheezes , rales, or rhonchi. GASTROINTESTINAL: Abdomen soft, non-tender, nondistended. Bowel Sounds normoactive x4. MUSCULOSKELETAL: Extremities without clubbing, cyanosis. Right lower extremity with Pelon bandage wrap, trace edema NEUROLOGICAL: Awake and alert. Oriented to place, person. No focal neuro deficit. Moves all extremities. Normal speech. Pt update on day of discharge Follow-up visit history of paroxysmal A. fib, status post fall with right ankle fracture, status post right ankle ORIF by Dr. Burger. Patient seen and examined today sitting in bed. Patient states she is able to transfer with assist.Pain is manageable. She is able to manage transferring from bed to commode with use of walker. Says she does not have a commode at home. Otherwise she is feeling better. Hospital Course Patient is [id number] white female with a history of paroxysmal atrial fibrillation sustained a fall after she lost her balance and sustained a injury over the right ankle. She is status post ORIF by Dr. Burger. Physical therapy evaluated and treated. Recommends rehabilitation placement. Patient is adamant to go home with home health care. States that is can help her out transfer from bed to commode or to wheelchair. She has paroxysmal atrial fibrillation not on any anticoagulations from home. She continues to take flecainide. Prior to hospitalization patient was diagnosed with acute bronchitis were and she continued to take her p.o. antibiotics doxycycline and amoxicillin including steroid taper dose in the inpatient setting. This will continue to completion and outpatient. Patient also had elevated troponin on admission possibly due to trauma and CKD stage III but has trended down. Patient has met maximal benefits of hospitalization. Clinically stable for discharge. Reiterated with patient recommendation to be discharged to rehab but continues to refuse. Case discussed with case management charge nurse. Pt Condition on Discharge: Good Discharge Disposition: Disch w/ Home Health Serv Discharge Time: <= 30 minutes Discharge Instructions DIET: Follow Instructions for: Heart Healthy Diet Activities you can perform: Non Weight Bearing Activities to Avoid: Driving for 24 hrs, Weight Bearing Other Activity Instructions: maintain splint at all times elevate Follow up Referrals: Orthopedics - 2 Weeks @ [facility] with Tommy Burger MD PCP Follow-up - 2-3 Days New Medications: Commode 3-in-1 (Commode 3-in-1) 1 Mis Mis EA .XX DIRECTED, #1 0 Refills Hydrocodone-Acetaminophen (Hydrocodone-Acetaminophen) 7.5 Mg-325 Mg Tab 1 TAB PO Q4H PRN for PAIN, #60 TAB 0 Refills Walker/Adult/Folding (Walker/Adult/Folding) 1 Mis Mis EA .XX DIRECTED, #1 0 Refills Wheelchair Elevated Leg (Wheelchair Elevated Leg) 1 Mis Mis EA .XX DIRECTED, #1 0 Refills Continued Medications: Acetaminophen (Tylenol) 325 Mg Tab 650 MG PO Q4H PRN for HEADACHE, TAB 0 Refills Amoxicillin (Amoxicillin) 500 Mg Cap 500 MG PO TID for Infection, CAP 0 Refills Doxycycline (Doxycycline) 40 Mg Cap 100 MG PO QID for Infection, CAP 0 Refills Flecainide (Flecainide) 100 Mg Tab 100 MG PO TID for Regulate Heart Beat, #60 TAB 0 Refills Lisinopril (Lisinopril) 10 Mg Tab 10 MG PO DAILY, #30 TAB 0 Refills Lorazepam (Ativan) 1 Mg Tab 1 MG PO Q8H PRN for ANXIETY AND/OR AGITATION, TAB 0 Refills Methylprednisolone Dosepak (Medrol Dosepak) 4 Mg Dspk 4 MG PO DIRECTED, #1 DSPK 0 Refills Per Pharmacist direction Ondansetron (Zofran) 4 Mg Tab 4 MG PO Q6HR PRN for NAUSEA OR VOMITING, TAB 0 Refills Sumatriptan (Sumatriptan) 50 Mg Tab 50 MG PO ONCE PRN for MIGRAINE HEADACHE, TAB 0 Refills If a satisfactory response has not been obtained at 2 hours, a second dose may be administered Zolpidem (Ambien) 10 Mg Tab 10 MG PO HS PRN for INSOMNIA, TAB 0 Refills Dawit Lucio March 24, 2018 10:40 Eliza Morrow MD Mar 25, 2018 09:19
[2018-03-24] MEDS ORDERED: WHEEMIS3 (11:26)
[2018-03-24 12:00] VITALS: BP 103/53; PULSE 72; RESP 18; TEMP 97.5; O2SAT 92
[2018-03-24 16:00] VITALS: BP 132/67; PULSE 77; RESP 18; TEMP 98.1; O2SAT 96
[2018-03-24 20:40] VITALS: BP 115/56; PULSE 92; RESP 18; TEMP 98.7; O2SAT 94
[2018-03-24] MEDS: ZOLPIDEM TARTRATE 10 MG TAB PO PRN (22:37)
[2018-03-25 00:40] VITALS: BP 131/73; PULSE 85; RESP 18; TEMP 98.4; O2SAT 97
--- NOTE | 2018-03-25 06:30 | PD.ORT.PN ---
Subjective Subjective Remarks POD 2 s/p ORIF right bimalleolar ankle fx doing well. reports pain in right ankle. Objective Vitals Vital Signs Date Time Temp Pulse Resp B/P (MAP) Pulse Ox O2 Delivery O2 Flow Rate FiO2 03/25/18 00:40 98.4 85 18 131/73 (92) 97 03/24/18 20:40 98.7 92 18 115/56 (75) 94 03/24/18 16:00 98.1 77 18 132/67 (88) 96 03/24/18 12:00 97.5 72 18 103/53 (70) 92 03/24/18 08:00 98.2 74 18 132/63 (86) 93 I/O 03/24/18 03/24/18 03/24/18 03/25/18 03/25/18 03/25/18 07:00 15:00 23:00 07:00 15:00 23:00 Intake Total 420 ml 720 ml Output Total 200 ml Balance 420 ml -200 ml 720 ml Intake Oral 420 ml 720 ml Output Urine Total 200 ml # Voids 2 4 Result Diagram: 03/23/18 0600 03/24/18 0447 Imaging Last 24 hours Impressions Tibia/Fibula X-Ray 03/23/18 0000 Signed Impressions: CONCLUSION: Disrupted ankle mortise and fractures of the distal fibula, talar dome and part ial tibiotalar dislocation. Chest X-Ray 03/23/18 0000 Signed Impressions: CONCLUSION: No acute cardiopulmonary disease. Ankle X-Ray 03/23/18 0000 Signed Impressions: CONCLUSION: Disrupted ankle mortise, fractures of the medial talar dome and displaced dista l fibular fracture. Partial anterior dislocation of tibiotalar joint. Objective Remarks RLE: +short leg splint. intact. NVI Assessment & Plan Assessment and Plan 1) Right Bimalleolar Ankle Fx s/p ORIF - POD 2 -NWB -maintain splint at all times -elevate -CM for DC planning home vs SNF -ortho clear for DC -f/u with Burger or PA in 2 Bebeto Childress PA/Superintendent Quarry PA Mar 25, 2018 06:30
[2018-03-25 08:00] VITALS: BP 170/79; PULSE 86; RESP 21; TEMP 99; O2SAT 92
[2018-03-25] MEDS: AMOXICILLIN (TRIHYDRATE) 500 MG CAP PO SCH (08:44)
[2018-03-25] MEDS: LISINOPRIL 10 MG TAB PO SCH (08:45)
[2018-03-25] MEDS: FLECAINIDE ACETATE 100 MG TAB PO SCH (08:45)
[2018-03-25] MEDS: DOXYCYCLINE HYCLATE 100 MG CAP PO SCH (08:45)
[2018-03-25] MEDS: methylPREDNISolone 4 MG TAB PO SCH (08:45)
[2018-03-25] MEDS: ACETAMINOPHEN/HYDROcodone 325 MG/7.5 MG TAB PO PRN (08:46)
--- NOTE | 2018-03-25 09:17 | HHI.PR ---
Subjective Remarks Wants to go home today. Pain control. No other concerns. Open to having home health care. Objective Vitals Vital Signs Date Time Temp Pulse Resp B/P (MAP) Pulse Ox O2 Delivery O2 Flow Rate FiO2 03/25/18 08:00 99.0 86 21 170/79 (109) 92 03/25/18 00:40 98.4 85 18 131/73 (92) 97 03/24/18 20:40 98.7 92 18 115/56 (75) 94 03/24/18 16:00 98.1 77 18 132/67 (88) 96 03/24/18 12:00 97.5 72 18 103/53 (70) 92 I/O 03/24/18 03/24/18 03/24/18 03/25/18 03/25/18 03/25/18 07:00 15:00 23:00 07:00 15:00 23:00 Intake Total 420 ml 720 ml 450 ml Output Total 200 ml Balance 420 ml -200 ml 720 ml 450 ml Intake Oral 420 ml 720 ml 450 ml Output Urine Total 200 ml # Voids 2 4 3 # Bowel Movements 0 Result Diagram: 03/23/18 0600 03/24/18 0447 Objective Remarks GENERAL: This is a well-nourished, well-developed patient, in no apparent distress. CARDIOVASCULAR: Regular rate and rhythm RESPIRATORY: Clear to auscultation. Breath sounds equal bilaterally. No wheezes , rales, or rhonchi. GASTROINTESTINAL: Abdomen soft, non-tender, nondistended. Normal active bowel sounds MUSCULOSKELETAL: Right lower extremity bandage clean dry and intact, neurovascularly intact NEURO: Alert & Oriented x4 to person, place, time, situation. Procedures status post right ankle ORIF by Dr. Burger A/P Problem List: (1) Fracture dislocation of right ankle ICD Code: S82.891A - Other fracture of right lower leg, initial encounter for closed fracture Status: Acute Assessment and Plan 1. Status post fall with right displaced ankle fracture status post operative day #[address] Burger, chronic and essential-continue postoperative care, pain control, physical therapy 2. Atrial fibrillation paroxysmal -patient is not on chronic anticoagulation at home. Currently normal sinus rhythm will continue with flecainide. 3. Hypertension , chronic and essential - overall blood pressure control. continue with lisinopril and Vasotec IV as needed for uncontrolled blood pressure. 4. Acute bronchitis recently diagnosed continue with home antibiotics doxycycline and steroid taper 5. Elevated Troponin I - asymptomatic - lilkely due to the trauma of fall and CKD stage 3, repeat level and trended down. No further workup needed. 6. CKD stage 3 - monitor and avoid nephrotoxins. 7. DVT prophylaxis SCDs Discharge Planning Discharged to home with home health care today. Problem Qualifiers (1) Fracture dislocation of right ankle: Qualified Codes: S82.891A - Other fracture of right lower leg, initial encounter for closed fracture Eliza Morrow MD Mar 25, 2018 09:17
[2018-03-25 12:00] VITALS: BP 150/80; PULSE 86; RESP 19; TEMP 98.1; O2SAT 96
[2018-03-25 12:04] VITALS: RESP 20
== END 2018-03-25 12:59 | disposition home health service (06) | DRG 494 ==
LOC: NEPC 05:45 → NEDA 09:15 → N06B 12:30
PROVIDERS: ADMIT Family Medicine; ATTEND Family Medicine
PROC: 0QSH04Z Reposition Left Tibia with Internal Fixation Device, Open Approach (ICD-10-PCS; 2018-03-23)
PROC: 0QSK04Z Reposition Left Fibula with Internal Fixation Device, Open Approach (ICD-10-PCS; principal; 2018-03-23 08:08)
DX: S82.841A Displaced bimalleolar fracture of right lower leg, initial encounter for closed fracture (principal); I48.0 Paroxysmal atrial fibrillation; N18.3 Chronic kidney disease, stage 3 (moderate); J20.9 Acute bronchitis, unspecified; I12.9 Hypertensive chronic kidney disease with stage 1 through stage 4 chronic kidney disease, or unspecified chronic kidney disease; E78.5 Hyperlipidemia, unspecified; M19.90 Unspecified osteoarthritis, unspecified site; R09.02 Hypoxemia; F32.9 Major depressive disorder, single episode, unspecified; F41.9 Anxiety disorder, unspecified; W01.0XXA Fall on same level from slipping, tripping and stumbling without subsequent striking against object, initial encounter; Y92.009 Unspecified place in unspecified non-institutional (private) residence as the place of occurrence of the external cause; Z85.3 Personal history of malignant neoplasm of breast; Z90.12 Acquired absence of left breast and nipple; Z87.891 Personal history of nicotine dependence
CPT/HCPCS: 71045; 73590; 73600; 73610; 76000; 80048; 80053; 82550; 82552; 83880; 84484; 85007; 85027; 85610; 85730; 90471; 90714; 93005; 94150; 94664; 96365; C1713; J0131; J0690; J1885; J2370; J3370; J7509